=== PATIENT | female | born 1990 | race Caucasian/White ===

== ENCOUNTER 2025-01-13 13:39 | Emergency (ER) | payer BC, SELFPAY ==
[2025-01-13 13:49] VITALS: BP 162/95; PULSE 100; RESP 18; TEMP 37; BMI 36.6
--- NOTE | 2025-01-13 14:14 | XR_ITS ---
Examination: CT soft tissue neck, without contrast. 2-D sagittal reconstructions. 2-D coronal reconstructions. 3-D reconstructions. Date and time of exam: January 13, 2025, 1513 hours INDICATIONS: Food stuck in the throat noticed beginning 3 hours ago CTDI: vol (mGy): 19.5 DLP: (mGycm): 559 Technique: Multiple 1.25 mm axial sections of the soft tissue neck without intravenous contrast have been obtained. 2-D sagittal and coronal reconstructions have been obtained. 3-D reconstructions have been obtained. Low dose protocols were performed. One or more of the following dose reduction techniques were used; automated exposure control, adjustment of the mA and/or KV according to patient size, use of iterative reconstruction technique. Findings: Symmetrical nasopharynx oropharynx No pathologic cervical lymphadenopathy, the largest lymph node 12 mm in the right carotid triangle region The larynx appears normal No opaque foreign body visualized in the esophagus oropharynx or nasopharynx Epiglottis is not thickened IMPRESSION: No opaque foreign body depicted Given the patient's presentation, consider standard fluoroscopically-guided esophagram follow-up
--- NOTE | 2025-01-13 14:16 | EDRME_ITS ---
Rapid Medical Screening Exam [facility] Arrival date/time: 01/13/25 13:39 34-year-old female with no known medical history presents to the emergency room with a chief complaint of a piece of beef stuck in her throat x 1 day. Patient denies any respiratory distress. I have greeted and performed a focused initial assessment of this patient. A comprehensive ED assessment and evaluation of the patient, analysis of all test results, and completion of the medical decision making process will be conducted by additional ED providers. Chief Complaint: Dental/Oral/Throat Vital signs: Vital Signs Temperature 98.6 F 01/13/25 13:49 Pulse Rate 100 01/13/25 13:49 Respiratory Rate 18 01/13/25 13:49 Blood Pressure 162/95 H 01/13/25 13:49 Oxygen Delivery Method Room Air 01/13/25 13:49 Vital signs reviewed by provider: Yes Exam: Clear bilateral lung sounds no stridor Strong and regular rhythm Clinical Impression: Esophageal food bolus impaction
[2025-01-13 15:55] VITALS: BP 166/111; PULSE 109; RESP 18; TEMP 36.9
[2025-01-13 16:09] LABS: Basophils # (Auto) 0.1 Thou/mm3 (0.0-0.2); Basophils % (Auto) 1 % (0-2.5); Eosinophils # (Auto) 0.2 Thou/mm3 (0.0-0.5); Eosinophils % (Auto) 2 % (0-10); Hematocrit 41.0 % (36.0-46.0); Hemoglobin 13.2 g/dL (12.0-16.0); Immature Granulocytes Auto 0.09 Thou/mm3 (0.00-0.00); Lymphocytes # (Auto) 2.7 Thou/mm3 (1.0-4.8); Lymphocytes % (Auto) 20 % (10-50); Mean Corpuscular HGB Conc 32.2 g/dl (31.0-37.0); Mean Corpuscular Hemoglobin 26.8 pg (25.0-35.0); Mean Corpuscular Volume 83 fL (80-100); Monocytes # (Auto) 0.7 Thou/mm3 (0.0-0.8); Monocytes % (Auto) 5 % (0-12); Neutrophils # (Auto) 9.6 Thou/mm3 (1.8-7.7); Neutrophils % (Auto) 72 % (37-80); Nucleated Red Blood Cell # 0.00 Thou/mm3 (0.00-0.00); Nucleated Red Blood Cell % 0 /100 WBC (0); Platelet Count 416 Thou/mm3 (140-440); RDW Standard Deviation 43.0 fL (36.4-46.3); Red Blood Count 4.92 Miln/mm3 (4.00-5.20); White Blood Count 13.4 Thou/mm3 (3.6-11.0)
--- NOTE | 2025-01-13 16:14 | PD.EDADULT ---
ED General RME/HPI General Chief complaint: Dental/Oral/Throat Stated complaint: FOOD STUCK IN THROAT Time Seen by Provider: 01/13/25 16:11 Arrival date/time: 01/13/25 13:39 CC: Difficulty swallowing HPI patient states she ate a bolus of food, and since then she has had difficulty swallowing. She is able to swallow her own saliva but states if she takes successive swallows of liquid they come back up . Patient denies difficulty breathing shortness of breath nausea vomiting diarrhea no prior history of similar events. RME / HPI RME / HPI narrative: 01/13/25 13:39 34-year-old female with no known medical history presents to the emergency room with a chief complaint of a piece of beef stuck in her throat x 1 day. Patient denies any respiratory distress. I have greeted and performed a focused initial assessment of this patient. A comprehensive ED assessment and evaluation of the patient, analysis of all test results, and completion of the medical decision making process will be conducted by additional ED providers. Exam: Clear bilateral lung sounds no stridor Strong and regular rhythm Impression: Esophageal food bolus impaction Related Data Allergies Allergy/AdvReac Type Severity Reaction Status Date / Time No Known Allergies Allergy Verified 01/13/25 13:40 Review of Systems Review of Systems Narrative Review of Systems: GEN: No fever, no chills, no weight loss EYES: No discharge, no visual changes, no pain HEENT: No ear pain, no congestion, no sore throat PULM: No shortness of breath, no cough, no congestion CV: No chest pain, no dyspnea on exertion, no palpitations GI: No nausea, no vomiting, no diarrhea, no pain, no constipation : No frequency, no urgency, no dysuria MUSC/SKEL: No joint pain, no back pain SKIN: No rash PSYCH: No hallucinations, no depression HEME/LYMPH: No easy bleeding or bruising tendencies NEURO: No weakness, no headache Past Medical History Social History SMOKING STATUS: Never smoker ED Exam Narrative Physical exam: [General: Obese not in in any acute distress Head normocephalic HEENT: Eyes pupils are PERRLA EOM intact mouth pink moist membranes uvula is midline swallow symmetrical phonation is normal all the subsystems HEENT are within acceptable limits Neck is supple nontender, no stridor with auscultation. No edema no lymphadenopathy. Chest equal chest rise nontender to palpation Respiratory: Clear to auscultation no wheezes crackles or rubs CV: Rate rhythm is regular no murmurs rubs or clicks Abdomen is distended secondary to body habitus soft nontender no masses positive bowel sounds all 4 quadrants Back: No CVA tenderness no spinous process tenderness from cervical spine thoracic and lumbar spine Skin: Intact no petechiae rash induration ulceration or crepitus Extremities: Moving all extremities against resistance cap refill less than 2 seconds neurosensory intact Neuro: Awake alert oriented x3 Glascow coma 15 no focal deficits] Course Course Course Narrative: Patient is not in any acute distress has no difficulty swallowing her own saliva, at this time the patient most likely has a sensation of a foreign body. Patient is follow-up with PCP and get a referral for GI if this continues after the next 48 hours. Patient is advised the meantime to use soft foods pur?ed foods or liquids. Any abrupt onset of difficulty swallowing or inability to swallow saliva she is to return the emergency room meetly for further evaluation. Quality Measures none Orders Category Date Time Status CT soft tissue neck wo con Stat Exams 01/13/25 14:14 Completed CBC Stat Lab 01/13/25 15:54 Completed CMP [Comprehensive Metabolic Panel] Stat Lab 01/13/25 15:54 Received INR [Prothrombin Time with INR] Stat Lab 01/13/25 15:54 Completed Vital Signs Vital signs: Vital Signs Temperature 98.6 F 01/13/25 13:49 Pulse Rate 100 01/13/25 13:49 Respiratory Rate 18 01/13/25 13:49 Blood Pressure 162/95 H 01/13/25 13:49 Oxygen Delivery Method Room Air 01/13/25 13:49 Discharge Plan Plan Patient Disposition: HOME (Self Care) Patient condition on transfer: Stable Prescriptions/Referrals Referrals: Mamie Chavira MD [Primary Care Provider] - In 1 week Problem List Clinical Impression: Difficulty in swallowing Patient/Caregiver Discharge Instructions Education Materials: Dysphagia: Exercises, ED Dysphagia (Adult) Print Language: [place] Stand Alone Forms: [employer]ola Award Info., Work/School Release, Patient Portal Info Letter RICH/FENG Supervising Physician PA/FENG Supervising Physician: Goran BATRES Clinical Information Provided by: patient Medical Records reviewed [facility] Meds/Rx considered, not ordered None Labs/Rad/Tests considered, not ordered None Chronic Illness/Social Conditions which may negatively complicate care or outcome(s)-explain: None or not applicable Explain: Obesity EKG EKG not done Labs Labs: interpreted by me Lab(s) Interpretation(s): CBC shows mild leukocytosis of 13.4 no anemia thrombocytopenia Imaging Imaging interpretation: interpreted by me Imaging Interpretation(s): CT soft tissue neck shows no foreign body no stricture or esophageal edema. Medication Administration(s) none Diagnosis Differential Diagnosis ED Complaint MDM: Esophageal stricture, foreign body, subcu mass
[2025-01-13 16:20] LABS: INR 1.0 (0.9-1.3); Prothrombin Time 10.2 Seconds (9.0-12.2)
[2025-01-13 16:28] LABS: Alanine Aminotransferase 58 U/L (10-49); Albumin, Serum 5.1 gm/dL (3.5-5.0); Albumin/Globulin Ratio 1.9 (1.2-2.2); Alkaline Phosphatase 87 U/L (46-116); Anion Gap 10 (7-16); Aspartate Amino Transferase 41 U/L (0-34); BUN/Creatinine Ratio 10 Ratio (12-20); Bilirubin,Total 0.8 mg/dL (0.3-1.2); Blood Urea Nitrogen 9 mg/dL (9-23); Calcium 9.7 mg/dL (8.3-10.6); Calcium (Corrected) 9.7 mg/dL (8.5-10.1); Carbon Dioxide 27.6 mMol/L (20.0-31.0); Chloride 104 mMol/L (98-107); Creatinine (Component) 0.9 mg/dL (0.6-1.3); Estimated Creatinine Clearance 112.0 mL/min (>60); Globulin 2.7 gm/dL (2.3-3.5); Glucose 136 mg/dL (74-106); Osmolality,Calculated 283 (275-295); Potassium 4.3 mMol/L (3.4-5.1); Sodium 142 mMol/L (136-145); Total Protein 7.8 gm/dL (5.7-8.2); eGFR > 60 See Note
[2025-01-13 16:34] VITALS: BP 147/93; PULSE 89; RESP 20; O2SAT 95
== END 2025-01-13 16:34 | disposition home or self-care (01) ==
PROVIDERS: Emergency Provider Emergency Medicine; PCP Internal Medicine
DX: R13.10 Dysphagia, unspecified (principal)
CPT/HCPCS: 36415; 70490; 80053; 85025; 85610; 99283